=== PATIENT | male | born 1975 | race Caucasian/White ===

== ENCOUNTER → 2018-08-06 09:44 | Outpatient (CLI) | payer OTHER, SELFPAY ==
--- NOTE | 2018-08-06 | DI.RAD.S_ITS ---
PROCEDURE: FL SHOULDER INJECTION MR/CT RT INDICATIONS: CHRONIC RIGHT SHOULDER PAIN TECHNIQUE: The indications, alternatives, benefits, risks, and complications of the procedure were explained to the patient. Written informed consent was obtained and placed in the chart. The right shoulder was examined fluoroscopically and a site for needle placement chosen for entry into the right glenohumeral joint from an anterior approach. The skin was prepped and draped in a sterile fashion, and 1% lidocaine infiltrated from skin down to joint capsule. A 22 gauge spinal needle was inserted into the glenohumeral joint, and a small amount of iodinated contrast media injected to confirm intra-articular placement of the needle tip. This was followed by approximately 15 mL dilute solution of a gadolinium containing MR contrast agent. The needle was removed and a dressing was applied. The patient was given postprocedural instructions and sent to the MR suite for MR imaging. FINDINGS: A single fluoroscopic spot image demonstrates intra-articular location of injected iodinated contrast. IMPRESSION: Successful fluoroscopically guided administration of dilute Gadolinium solution into the right shoulder joint for MR arthrogram. Dictated by: Twan Lynne M.D. on 08/06/2018 at 11:14 Approved by: Twan Lynne M.D. on 08/06/2018 at 11:16
--- NOTE | 2018-08-06 | DI.MRI.S_ITS ---
PROCEDURE: MR SHOULDER RT W CON INDICATIONS: CHRONIC RIGHT SHOULDER PAIN TECHNIQUE: After the administration of 12 mL of dilute intra-articular Gadolinium contrast, oblique coronal T1 and T2 spin echo with fat saturation, oblique sagittal T1 spin echo with and without fat saturation, oblique sagittal T2 fast spin echo with fat saturation, axial T1 spin echo with fat saturation through the shoulder. COMPARISON: None. FINDINGS: Image quality: Excellent. Rotator cuff: Supraspinatus tendinopathy and thickening is present. There is a slitlike full-thickness tear, for example image 12 series 6, image 12 series 5 at the junction of the critical zone and footprint. Mild infraspinatus tendinopathy and low-grade articular surface fraying. The teres minor appears intact. The subscapularis tendon appears grossly intact. Mild fatty infiltration of the supraspinatus and infraspinatus muscle is without overt atrophy. Bones and bursae: No bone marrow contusions or fractures. Moderate acromioclavicular joint degeneration. The acromion demonstrates conventional anatomy, without an os acromiale. Large amount of subacromial/subdeltoid bursal fluid is seen. There is a small glenohumeral joint effusion Capsule and soft tissues: The labrum and glenohumeral ligaments appear intact. No discrete intrasubstance gadolinium signal intensity seen to suggest tear although there is mild low signal hypertrophy of the anteroinferior segment, technically non-specific although raises the possibility of remote chronic labral tear with scarring. The long head of the biceps tendon demonstrates normal location and morphology. The rotator interval appears normal, without fibrosis. The coracohumeral ligament is of normal thickness. No intra-articular bodies. IMPRESSION: Supraspinatus tendinopathy with slitlike full-thickness tear at the junction of the critical zone and footprint. Mild infraspinatus tendinopathy with low-grade articular surface fraying. Fatty infiltration without definite atrophy of the supraspinatus and infraspinatus muscles. No definite labral tear. Possible chronic hypertrophy and scarring of the anteroinferior labrum. Dictated by: Lauro Serrano M.D. on 08/06/2018 at 12:27 Approved by: Lauro Serrano M.D. on 08/06/2018 at 12:37
== END ==
PROVIDERS: Visit Provider Nurse Practitioner Family
DX: M25.511 Pain in right shoulder (principal); G89.29 Other chronic pain; M75.121 Complete rotator cuff tear or rupture of right shoulder, not specified as traumatic
CPT/HCPCS: 23350; 73222; 77002